=== PATIENT | female | born 1985 | race Caucasian/White ===

== ENCOUNTER 2018-03-09 23:34 | Observation (INO) ==
[2018-03-09] MEDS ORDERED: 0.9 % Sodium Chloride 1,000 ML IVC ONE ×2 (23:42→23:43)
--- NOTE | 2018-03-09 23:47 | Emergency Department Note ---
Disposition Clinical Impression: Pneumonia of both lower lobes, UTI (urinary tract infection), Sepsis Disposition: Admitted As Inpatient Condition: Good Referrals: Josiah Roche MD [Primary Care Provider] - Forms: ED Satisfaction Letter Time of Disposition: 01:30 SOB HPI - General Chief Complaint: ED Shortness of Breath/Dyspnea Stated Complaint: pneumonia Time Seen by Provider: 03/09/18 23:43 Source: patient Mode of arrival: ambulatory Limitations: no limitations Nursing Notes Reviewed: Yes Vital Signs Reviewed: Yes - History of Present Illness 32-year-old female presents today with a week's worth of cough and not feeling well and upper respiratory symptoms. She states it started as a runny nose and progressed down into her chest. She was seen in urgent care earlier today told she had bilateral pneumonia and was told to come up to the ER immediately so that she can get admitted. She arrives here approximately 3 or 4 hours later. She states that she still short of breath and has a cough. She states that she was concerned about being admitted not for she had not come up yet. They did not start on any antibiotics at the urgent care. Patient states that yesterday she felt very tired and was unable to even get up out of bed because of her exhaustion. She states otherwise she is a healthy person. She did not get the flu shot this year. Pt Subjective Complaint: shortness of breath, cough - Related Data Home Medications Medication Instructions Recorded Confirmed Suboxone 8 mg-2 mg Sl Film 8 mg SL BID 03/09/18 03/09/18 Allergies Allergy/AdvReac Type Severity Reaction Status Date / Time No Known Allergies Allergy Verified 03/09/18 23:42 Review of Systems: All other systems are negative except as noted/marked Chart generated with voice recognition software Nursing notes reviewed Old records reviewed Past Medical History - Past Medical History Attestation: Yes The following information was validated with the patient. 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 - Social History Smoking Status: Current every day smoker Smokeless Tobacco Status: No Alcohol use: Reports: none Drug use: Reports: cocaine, prescription drug abuse Physical Exam General: Mild distress, VSS Head: normocephalic, atraumatic Eyes: EOMI, PERRLA mouth: Dry mucous membranes Neck: NO CLA, Supple Chest wall: normal rise, no crepitus, no deformity noted Lungs: Coarse lung sounds on the right in the lower lung field Heart: Tachycardic and regular Abd: soft, nontender, BS normal : deferred MSK: strength equal in all four extremities Ext: moves all four extremities, no obvious deformities Skin: cap refill normal, warm, dry neuro : CN2-12 grossly intact, A&Ox3 Psych: normal affect, not anxious - General Limitations: no limitations General appearance: alert Course Vital Signs Temperature 98.9 F 03/09/18 23:35 Pulse Rate 141 03/09/18 23:35 Respiratory Rate 20 03/09/18 23:35 Blood Pressure 126/81 03/09/18 23:35 O2 Sat by Pulse Oximetry 90 03/09/18 23:35 Temperature 98.9 F 03/09/18 23:35 Pulse Rate 133 03/10/18 00:06 Respiratory Rate 20 03/10/18 00:06 Blood Pressure 127/69 03/10/18 00:06 O2 Sat by Pulse Oximetry 99 03/10/18 00:06 Oxygen Delivery Oxygen Delivery Nasal Cannula Shortness of Breath/Dyspnea - MDM Narrative Medical decision making narrative: Patient presents to us today after being diagnosed with bilateral pneumonia at the urgent care. She right now she is requiring oxygen to maintain sats in the 90s. She is tachycardic but improving after IV fluid boluses. Her first lactic acid was negative and her white count is elevated. A serum Rocephin and doxycycline. I do think that she would benefit from inpatient as she has is urinary tract infection along with the bilateral pneumonia. I do think that since she is remaining tachycardic with IV fluids that it would be beneficial for her to stay on a monitor. She is requiring oxygen at this time which is also not her baseline. Consult was placed to Dr. Espinoza for admission. Dr Espinoza acceptd the patient. IVF given, Rocephin/Doxy given for pneumonia and uti. Patient sitting up, texting, no distress, resting comfortably. - Medical Records Medical records reviewed: Yes I reviewed the patient's medical records. - Lab Data Lab results reviewed: Yes I reviewed the patient's lab results. Result diagrams: 03/10/18 00:22 03/10/18 00:22 Lab Results 03/09/18 03/10/18 03/10/18 Range/Units 23:54 00:22 00:22 WBC 16.5 H (4.3-11.1) K/mcL RBC 3.95 (3.82-4.97) M/mcL Hgb 10.9 L (11.5-15.4) g/dL Hct 33.4 L (35.3-44.9) % MCV 84.6 (83.0-100.0) fL MCH 27.6 L (28.0-33.3) pg MCHC 32.6 (31.6-35.5) g/dL RDW 12.6 (11.5-14.5) % Plt Count 478 H (140-400) K/mcL MPV 9.0 L (9.4-12.4) fL Immature Gran % 1.1 (0-4) % Seg Neutrophils % 81.7 % Lymphocytes % 9.5 % Monocytes % 6.6 % Eosinophils % 0.7 % Basophils % 0.4 % Neutrophils # 13.5 H (1.6-8.9) K/mcL Lymphocytes # 1.6 (0.6-4.6) K/mcL Monocytes # 1.1 (0.0-1.3) K/mcL Eosinophils # 0.1 (0.0-0.6) K/mcL Basophils # 0.1 (0.0-0.2) K/mcL Sodium 133 L (136-145) mEq/L Potassium 3.6 (3.5-5.1) mEq/L Chloride 94 L (98-107) mEq/L Carbon Dioxide 29 (23-29) mEq/L BUN 7 (6-20) mg/dL Creatinine 0.65 (0.60-1.20) mg/dL Est GFR ( Amer) > 60 (> 60) Est GFR (Non-Af Amer) > 60 (> 60) BUN/Creatinine Ratio 11 (6-26) Glucose 111 H (70-105) mg/dL Calculated Osmolality 275 L (280-300) Lactic Acid (0.5-2.2) mmol/L Calcium 9.4 (8.6-10.3) mg/dL Urine Color Yellow (Yellow) Urine Clarity Clear (Clear) Urine pH 5.5 (5.0-8.0) pH Units Ur Specific Blackburn >= 1.030 H (1.010-1.025) Urine Protein 100 H (Neg-Trace) mg/dL Urine Glucose (UA) Normal (Normal) mg/dL Urine Ketones Trace H (Negative) mg/dL Urine Blood Small H (Negative) Urine Nitrite Positive A (Negative) Urine Bilirubin Moderate H (Negative) Urine Urobilinogen 4.0 H (Normal) mg/dL Ur Leukocyte Esterase Small H (Negative) Urine Microscopic RBC 5-15 H (0-3) per hpf Urine Microscopic WBC 15-30 H (0-3) per hpf Ur Squamous Epith Cells Few (None-Few) per lpf Urine Bacteria Few (None-Few) per hpf Ur Culture Indicated? YES A (NO) 03/10/18 Range/Units 00:22 WBC (4.3-11.1) K/mcL RBC (3.82-4.97) M/mcL Hgb (11.5-15.4) g/dL Hct (35.3-44.9) % MCV (83.0-100.0) fL MCH (28.0-33.3) pg MCHC (31.6-35.5) g/dL RDW (11.5-14.5) % Plt Count (140-400) K/mcL MPV (9.4-12.4) fL Immature Gran % (0-4) % Seg Neutrophils % % Lymphocytes % % Monocytes % % Eosinophils % % Basophils % % Neutrophils # (1.6-8.9) K/mcL Lymphocytes # (0.6-4.6) K/mcL Monocytes # (0.0-1.3) K/mcL Eosinophils # (0.0-0.6) K/mcL Basophils # (0.0-0.2) K/mcL Sodium (136-145) mEq/L Potassium (3.5-5.1) mEq/L Chloride (98-107) mEq/L Carbon Dioxide (23-29) mEq/L BUN (6-20) mg/dL Creatinine (0.60-1.20) mg/dL Est GFR ( Amer) (> 60) Est GFR (Non-Af Amer) (> 60) BUN/Creatinine Ratio (6-26) Glucose (70-105) mg/dL Calculated Osmolality (280-300) Lactic Acid 0.8 (0.5-2.2) mmol/L Calcium (8.6-10.3) mg/dL Urine Color (Yellow) Urine Clarity (Clear) Urine pH (5.0-8.0) pH Units Ur Specific [place] (1.010-1.025) Urine Protein (Neg-Trace) mg/dL Urine Glucose (UA) (Normal) mg/dL Urine Ketones (Negative) mg/dL Urine Blood (Negative) Urine Nitrite (Negative) Urine Bilirubin (Negative) Urine Urobilinogen (Normal) mg/dL Ur Leukocyte Esterase (Negative) Urine Microscopic RBC (0-3) per hpf Urine Microscopic WBC (0-3) per hpf Ur Squamous Epith Cells (None-Few) per lpf Urine Bacteria (None-Few) per hpf Ur Culture Indicated? (NO) - Radiology Data Radiology results reviewed: Yes I reviewed the patient's radiology results. EXAMINATION: TWO VIEWS OF THE CHEST 03/09/2018 7:49 pm COMPARISON: 05/14/2016 HISTORY: ORDERING SYSTEM PROVIDED HISTORY: CHEST PAIN, TACYCHARDIA AND LOW OXYGEN SATRUATION FINDINGS: Bilateral lower lobe airspace opacification. The heart size is normal. No pulmonary vascular congestion. XR/XR chest 2V IMPRESSION: Bilateral lower lobe pneumonia D/ / aLw Hammond MD / Law Hammond MD Interpreting Provider: Law Hammond MD - EKG Data EKG attestation: Yes I reviewed and interpreted this EKG. EKG results narrative: EKG interpreted by myself as sinus tachycardia rate [address] elevation
[2018-03-09] MEDS ORDERED: Doxycycline 100 MG in 0.9 % Sodium Chloride Mini Bag 100 ML IVPB ONE (23:54)
[2018-03-09] MEDS ORDERED: cefTRIAXone 1,000 MG in Water for inj. (sterile) 20 ML 10 ML IVP ONE (23:54)
[2018-03-09 23:58] LABS: Bilirubin,Urine Moderate (Negative); Blood,Urine Small (Negative); Clarity,Urine Clear (Clear); Color,Urine Yellow (Yellow); Glucose,Urine (UA) Normal (Normal); Ketones,Urine Trace mg/dL (Negative); Leukocyte Esterase,Urine Small (Negative); Nitrite,Urine Positive (Negative); PH,Urine 5.5 pH Units (5.0-8.0); Protein,Urine 100 mg/dL (Neg-Trace); Specific Gravity,Urine >= 1.030 (1.010-1.025)
[2018-03-10 00:51] LABS: Basophils # 0.1 K/mcL (0.0-0.2); Basophils % 0.4 %; Eosinophils # 0.1 K/mcL (0.0-0.6); Eosinophils % 0.7 %; Hematocrit 33.4 % (35.3-44.9); Hemoglobin 10.9 g/dL (11.5-15.4); Immature Granulocytes % 1.1 % (0-4); Lymphocytes # 1.6 K/mcL (0.6-4.6); Lymphocytes % 9.5 %; Mean Corpuscular HGB Conc 32.6 g/dL (31.6-35.5); Mean Corpuscular Hemoglobin 27.6 pg (28.0-33.3); Mean Corpuscular Volume 84.6 fL (83.0-100.0); Monocytes # 1.1 K/mcL (0.0-1.3); Monocytes % 6.6 %; Neutrophils # 13.5 K/mcL (1.6-8.9); Platelet Count 478 K/mcL (140-400); Red Blood Count 3.95 M/mcL (3.82-4.97); Red Cell Distribution Width 12.6 % (11.5-14.5); Segmented Neutrophils % 81.7 %
[2018-03-10 01:06] LABS: Bacteria,Urine Few per hpf (None-Few); Squamous Epithelial Cell,Urine Few per lpf (None-Few); WBC,Urine 15-30 per hpf (0-3)
[2018-03-10 01:13] LABS: BUN/Creatinine Ratio 11 (6-26); Blood Urea Nitrogen 7 mg/dL (6-20); Calcium 9.4 mg/dL (8.6-10.3); Carbon Dioxide 29 mEq/L (23-29); Chloride 94 mEq/L (98-107); Glucose 111 mg/dL (70-105); Osmolality,Calculated 275 (280-300); Potassium 3.6 mEq/L (3.5-5.1); Sodium 133 mEq/L (136-145); eGFR For Non-African Americans > 60 (> 60)
[2018-03-10] MEDS ORDERED: *HR* HYDROcodone/Acet 5/325 mg TABLET PO PRN (02:21)
[2018-03-10] MEDS ORDERED: Naloxone 0.4 MG/ML INJ IVP PRN (02:21)
[2018-03-10] MEDS ORDERED: 0.9 % Sodium Chloride 1,000 ML IVC SCH (02:21)
[2018-03-10] MEDS ORDERED: Ibuprofen 400 MG TABLET PO PRN (02:21)
[2018-03-10] MEDS ORDERED: Acetaminophen 325 MG TABLET PO PRN (02:21)
[2018-03-10] MEDS: 0.9 % Sodium Chloride 1,000 ML IVC SCH ×2 (03:00→14:55)
[2018-03-10] MEDS: 0.45 % Sodium Chloride w/KCl 20 MEQ/1,000 ML MLS IVC SCH ×2 (07:52→17:26)
--- NOTE | 2018-03-10 11:14 | Internal Med History&Physical ---
Date of Encounter: 03/10/18 Time of Encounter: 10:50 Assessment and Plan (1) Pneumonia Current visit: No Status: Acute She was given IV Rocephin and doxycycline in emergency room. Doxycycline will not be continued because of . She will be given oral Zithromax and lactobacillus. Qualifiers: Pneumonia type: due to unspecified organism Laterality: bilateral Lung location: lower lobe of lung Qualified Code(s): J18.1 - Lobar pneumonia, unspecified organism (2) Anemia Current visit: Yes Status: Acute Order anemia testing in a.m. Qualifiers: Anemia type: unspecified type Qualified Code(s): D64.9 - Anemia, unspecified (3) UTI (urinary tract infection) Current visit: Yes Status: Acute Continue IV Rocephin. Add lactobacillus. Qualifiers: Urinary tract infection type: site unspecified Hematuria presence: with hematuria Qualified Code(s): N39.0 - Urinary tract infection, site not specified; R31.9 - Hematuria, unspecified Internal Medicine - H&P: HPI Chief complaint: Pneumonia Admitted From: Emergency Dept Plans for Post Hospital Care: Home History of present illness: Ms. Kaye is a 32 year old female who came to emergency room stating she had onset of cough approximately one week earlier. He was productive of green sputum but she denies hemoptysis. She reports feeling febrile at home. She went to urgent care. Admission were chest x-ray showed bibasilar pneumonia. She was referred to emergency room. She was admitted to [facility] floor for ongoing care needs. She reports previous episodes of pneumonia with most recent one approximately 2016. Respiratory history significant for having smoked since age 17 up to 2 packs per day. She claims diagnoses of COPD and asthma however PFTs done 03/04 showed FVC 93% predicted, FEV1 82% predicted, FEV1/FVC 75%, MVV 69%, RV 185%, and DLCO 81%. There was no significant change in flow rates postbronchodilator. She uses oxygen at home prn. Past Med Surg Social Fam HX - Past Medical History Medical history: asthma, COPD Additional medical history: high heart rate Psychiatric history: anxiety, depression - Past Surgical History Surgical History: no surgical history - Social History Smoking Status: Current every day smoker Smokeless Tobacco Status: No Alcohol use: none Drug use: cocaine, prescription drug abuse Internal Medicine - H&P: Meds Suboxone 8 mg-2 mg Sl Film 8 mg SL BID 03/09/18 [History] 3 Allergy/AdvReac Type Severity Reaction Status Date / Time No Known Allergies Allergy Verified 03/09/18 23:42 All Systems PM: A 10-system review of systems was performed and is negative for pertinent findings except as documented above in the HPI. Review of systems: Gen.: She states her non weight has been stable for several years Cardiovascular: She denies hypertension CO heart failure angina DVT or pulmonary embolus Respiratory: As per history of present illness GI: She denies disorders of her liver gallbladder or exocrine pancreas : She denies hematuria dysuria or kidney stones. She states she had childbirth 6 months ago. test in emergency room was positive. Neurologic: She denies large distribution strokes or seizures. Endocrine: She denies diabetes thyroid disease or hyperlipidemia Hematology/oncology: She has history of anemia. She denies internal malignancies or other blood disorders. Psychiatric: She has history of anxiety and depression Musk skeletal: She denies arthritis gout or other bone joint or muscle disorders. - Constitutional Vitals: Temp Pulse Resp BP Pulse Ox 98.4 F 102 18 104/63 98 03/10/18 10:52 03/10/18 10:52 03/10/18 10:52 03/10/18 10:52 03/10/18 10:52 Exam: Gen.: She is a well-developed well-nourished female resting comfortably in bed who appears in no acute distress at present time HEENT: Head is atraumatic and normocephalic. Eyes: EOMI. There is no scleral icterus. Mouth: Mucosa is moist. Neck: Supple and nontender. There is no thyromegaly or adenopathy noted. Heart: Regular without murmurs gallops or ectopics Lungs: No wheezes or crackles are heard. Abdomen: Soft and nontender. No masses or guarding are noted. Extremities: There is no cyanosis edema or clubbing noted. Dorsalis pedis and posttibial pulses are trace to 1+ palpable bilaterally. Neurologic: Mental status: She is talkative and a good historian. Cranial nerves: Smile is symmetric. Forehead wrinkles bilaterally. Tongue protrudes midline. EOMI. Motor: There is no pronator drift. Cerebellar: Finger to nose is intact bilaterally. Skin: Warm and dry Internal Med - H&P Results - Labs CBC & Chem 7: 03/10/18 00:22 03/10/18 00:22
[2018-03-10] MEDS: Azithromycin 250 MG TABLET PO SCH (14:27)
[2018-03-10] MEDS: SUBOXONE SL SCH ×2 (17:27→22:09)
[2018-03-10] MEDS: Lactobacillus 1 EACH CAP.SPRINK PO SCH (22:08)
[2018-03-11 03:08] VITALS: BP 113/74
[2018-03-11] MEDS: 0.45 % Sodium Chloride w/KCl 20 MEQ/1,000 ML MLS IVC SCH (03:39)
--- NOTE | 2018-03-11 09:05 | Discharge Summary ---
Date of Encounter: 03/11/18 Time of Encounter: 08:58 - Discharge Diagnosis (1) Pneumonia Priority: Primary Status: Acute Qualifiers: Pneumonia type: due to unspecified organism Laterality: bilateral Lung location: lower lobe of lung Qualified Code(s): J18.1 - Lobar pneumonia, unspecified organism (2) Anemia Priority: Secondary Status: Acute Qualifiers: Anemia type: unspecified type Qualified Code(s): D64.9 - Anemia, unspecified (3) UTI (urinary tract infection) Priority: Secondary Status: Acute Qualifiers: Urinary tract infection type: site unspecified Hematuria presence: with hematuria Qualified Code(s): N39.0 - Urinary tract infection, site not specified; R31.9 - Hematuria, unspecified Hospital course: Ms. Kaye is a 32 year old female who came to emergency room stating she had onset of cough approximately one week earlier. He was productive of green sputum but she denies hemoptysis. She reports feeling febrile at home. She went to urgent care. Admission were chest x-ray showed bibasilar pneumonia. She was referred to emergency room. She was admitted to [facility] for ongoing care needs. Initial orders were written by the emergency room physician. I saw her on March 10 and performed the history and physical. She was started on IV Rocephin in emergency room. She was also given a dose of IV doxycycline. test returned positive and doxycycline was not continued. She was given oral Zithromax and lactobacillus. She remained afebrile during her hospital stay. Multiple attempts at additional venipuncture for labs were unsuccessful. Urine culture preliminary report at discharge showed greater than 100,000 gram- negative rods. She will be discharged home on Ceftin and Zithromax. Her PCP can follow up on the culture results and determine if alternate antibiotics should be prescribed. She will follow with her PCP Dr. Josiah Roche within 1 week. I encouraged her to come a nonsmoker. She reported she had home oxygen. - Time Spent with Patient Total time spent providing and/or coordinating discharge services: - Discharge Medications Prescriptions: Cefuroxime PO [Ceftin] 500 mg PO Q12HR #8 tablet Azithromycin [Zithromax] 250 mg PO DAILY #4 tablet Lactobacillus [Culturelle] 1 each PO BID #8 [email or web address] Home Medications: Suboxone 8 mg-2 mg Sl Film 8 mg SL BID 03/09/18 [History] Azithromycin [Zithromax] 250 mg PO DAILY #4 tablet 03/11/18 [Rx] Cefuroxime PO [Ceftin] 500 mg PO Q12HR #8 tablet 03/11/18 [Rx] Lactobacillus [Culturelle] 1 each PO BID #8 cap.[email or web address] 03/11/18 [Rx] Allergies/Adverse Reactions: 3 Allergy/AdvReac Type Severity Reaction Status Date / Time No Known Allergies Allergy Verified 03/09/18 23:42 Date of admission: 03/10/18 13:50 Primary care physician: Josiah Roche MD - Constitutional Vitals: Temp Pulse Resp BP Pulse Ox 98.5 F 99 16 113/74 99 03/11/18 03:08 03/11/18 03:08 03/11/18 03:08 03/11/18 03:08 03/11/18 03:08 - Patient Status Disposition: Home, Self-Care Condition: Good - Discharge Instructions Follow Up With: Josiah Roche MD [Primary Care Provider] - 1 week - Diet and Activity Activity: resume usual activities as tolerated Diet: advance to your usual diet
[2018-03-11] MEDS: Azithromycin 250 MG TABLET PO SCH (09:17)
[2018-03-11] MEDS: Lactobacillus 1 EACH CAP.SPRINK PO SCH (09:17)
[2018-03-11] MEDS: SUBOXONE SL SCH (09:19)
--- NOTE | 2018-03-11 09:30 | Electrocardiograph Report ---
[address] [place], [place] [address] Test Date: 2018-03-10 Pat Name: Sneha Kaye Department: 9201 Room: [facility] Gender: F Boarding Mother: : 1985 Requested By: Sima Aleman Order Number: [id number] Reading MD: Marla Banks Measurements Intervals [place] Rate: 132 P: 63 [place]: 128 QRS: 69 QRSD: 90 T: 22 QT: 278 QTc: 356 Interpretive Statements SINUS TACHYCARDIA ABNORMAL RHYTHM ECG Electronically Signed On 03-11-2018 9:29:04 EDT by Marla Banks
[2018-03-11] MEDS ORDERED: cefTRIAXone 1,000 MG in Water for inj. (sterile) 20 ML 10 ML IVP SCH (12:00)
== END 2018-03-11 12:29 | disposition home or self-care (01) | DRG 566 ==
LOC: EMEROOPIK 23:34 → INPPIK 23:34
PROVIDERS: ADMIT Internal Medicine; ATTEND Internal Medicine